=== PATIENT | male | born 1965 | race Caucasian/White ===

== ENCOUNTER 2020-04-03 07:20 | Day surgery (SDC) | payer BC ==
[~2020-04-03] VITALS: Ht 175.3 cm; Wt 143.7 kg
[2020-04-03] VITALS (16 sets, daily range): BP systolic 80–114; BP diastolic 41–71
[2020-04-03] MEDS ORDERED: SPIR50TA5 PO (07:57)
[2020-04-03] MEDS ORDERED: ZINC220C11 PO (07:57)
[2020-04-03] MEDS ORDERED: LOSA1TAB41 PO (07:57)
[2020-04-03] MEDS ORDERED: HYDR-3972 PO (07:57)
[2020-04-03] MEDS ORDERED: VITA-268 PO (07:57)
[2020-04-03] MEDS ORDERED: FURO40TA4 PO (07:57)
[2020-04-03] MEDS ORDERED: THIA500T (07:57)
[2020-04-03] MEDS: albumin 25% 100mL bottle x 1 IV PRN ×4 (09:02→11:46)
== END 2020-04-03 12:45 | disposition home or self-care (01) ==
LOC: SSTAY O 07:20
PROVIDERS: ATTEND Radiology Vascular & Interventional Radiology
DX: K70.31 Alcoholic cirrhosis of liver with ascites (principal); D64.9 Anemia, unspecified; I10 Essential (primary) hypertension; K76.6 Portal hypertension; Z98.890 Other specified postprocedural states; Z79.899 Other long term (current) drug therapy
CPT/HCPCS: 49083; P9047

== ENCOUNTER 2020-05-05 06:27 | Day surgery (SDC) | payer BC ==
[~2020-05-05] VITALS: Ht 175.3 cm; Wt 124.8 kg
[2020-05-05] VITALS (15 sets, daily range): BP systolic 72–99; BP diastolic 34–60
[~2020-05-05 06:27] MED LIST: FURO40TA4 PO; HYDR-3972 PO; LOSA1TAB41 PO; SPIR50TA5 PO; THIA500T; VITA-268 PO; ZINC220C11 PO
[2020-05-05] MEDS ORDERED: ondansetron/PF 4mg/2ml inj IV ONE (07:10)
[2020-05-05] MEDS ORDERED: OMEP40CA13 PO (07:21)
[2020-05-05] MEDS: albumin 25% 100mL bottle x 1 IV PRN ×4 (08:31→10:34)
[2020-05-05] MEDS ORDERED: HYDROcodone/acetaminophen 10/325mg tab PO PRN (09:30)
[2020-05-05 10:06] LABS: TOTAL PROTEIN,BODY FLUID 2.7 G/DL
[2020-05-05] MEDS ORDERED: normal saline 1000ml 1,000 ML IV ONE (10:35)
[2020-05-05 11:03] LABS: BF MESOTHELIAL CELLS FEW; BF RBC COUNT 13 /CU MM; BF WBC COUNT 129 /CU MM (0-1000); BFAPPEAR HAZY; BFCOLOR YELLOW; BFVOLUME 60 ML; LYMPHOCYTES,BODY FLUID 29 %; MONOCYTES,BODY FLUID 69 %; NEUTROPHILS,BODY FLUID 2 %
== END 2020-05-05 11:30 | disposition home or self-care (01) ==
LOC: SSTAY O 06:27
PROVIDERS: ATTEND Radiology Vascular & Interventional Radiology
DX: K70.31 Alcoholic cirrhosis of liver with ascites (principal); D64.9 Anemia, unspecified; I10 Essential (primary) hypertension; K76.6 Portal hypertension; Z98.890 Other specified postprocedural states; Z79.899 Other long term (current) drug therapy
CPT/HCPCS: 49083; 82042; 84157; 89051; J2405; J7030; P9047

== ENCOUNTER 2020-06-16 06:20 | Day surgery (SDC) | payer BC ==
[2020-06-16] VITALS (17 sets, daily range): BP systolic 85–120; BP diastolic 45–75
[~2020-06-16] VITALS: Ht 175.3 cm; Wt 116.8 kg
[~2020-06-16 06:20] MED LIST changes: -LOSA1TAB41 PO; +OMEP40CA13 PO
[2020-06-16] MEDS ORDERED: HYDR-3686 (06:55)
[2020-06-16] MEDS ORDERED: GABA300C PO (06:55)
[2020-06-16] MEDS ORDERED: CLOT15CR73 (06:55)
[2020-06-16] MEDS ORDERED: BUME1TAB8 PO (06:55)
[2020-06-16] MEDS: albumin 25% 100mL bottle x 1 IV PRN ×4 (08:33→10:57)
[2020-06-16] MEDS ORDERED: ketorolac trometh. 30mg/ml inj. IV ONE (08:45)
[2020-06-16] MEDS ORDERED: CHOL4PAC4 (09:31)
[2020-06-16] MEDS ORDERED: POLY119P28 (09:31)
== END 2020-06-16 12:00 | disposition home or self-care (01) ==
LOC: SSTAY O 06:20
PROVIDERS: ATTEND Radiology Diagnostic Radiology
DX: K70.31 Alcoholic cirrhosis of liver with ascites (principal); D64.9 Anemia, unspecified; I10 Essential (primary) hypertension; K76.6 Portal hypertension; F10.21 Alcohol dependence, in remission; Z98.890 Other specified postprocedural states; Z79.899 Other long term (current) drug therapy
CPT/HCPCS: 49083; J1885; P9047

== ENCOUNTER 2020-07-01 07:04 | Day surgery (SDC) | payer BC ==
[~2020-07-01] VITALS: Ht 175.3 cm; Wt 120.8 kg
[2020-07-01] VITALS (14 sets, daily range): BP systolic 84–121; BP diastolic 42–78
[~2020-07-01 07:04] MED LIST changes: +BUME1TAB8 PO; +CHOL4PAC4; +CLOT15CR73; -FURO40TA4 PO; +GABA300C PO; +HYDR-3686; -OMEP40CA13 PO; +POLY119P28
[2020-07-01] MEDS ORDERED: normal saline 1000ml 1,000 ML IV PRN (07:25)
[2020-07-01] MEDS ORDERED: GABA300C PO (07:40)
[2020-07-01] MEDS ORDERED: SPIR100T5 PO (07:40)
[2020-07-01] MEDS: albumin 25% 100mL bottle x 1 IV PRN ×4 (09:07→11:21)
[2020-07-01] MEDS ORDERED: ketorolac trometh. 30mg/ml inj. IV ONE (09:10)
== END 2020-07-01 12:40 | disposition home or self-care (01) ==
LOC: SSTAY O 07:04
PROVIDERS: ATTEND Radiology Vascular & Interventional Radiology
DX: K70.31 Alcoholic cirrhosis of liver with ascites (principal); D64.9 Anemia, unspecified; I10 Essential (primary) hypertension; K76.6 Portal hypertension; Z98.890 Other specified postprocedural states; Z79.899 Other long term (current) drug therapy
CPT/HCPCS: 49083; J1885; P9047

== ENCOUNTER 2020-07-08 06:11 | Day surgery (SDC) | payer BC ==
[~2020-07-08] VITALS: Ht 175.3 cm; Wt 119.0 kg
[2020-07-08] VITALS (12 sets, daily range): BP systolic 90–115; BP diastolic 48–69
[~2020-07-08 06:11] MED LIST changes: +SPIR100T5 PO; -SPIR50TA5 PO
[2020-07-08] MEDS: albumin 25% 100mL bottle x 1 IV PRN ×4 (08:24→09:58)
[2020-07-08 09:39] LABS: LYMPHOCYTES,BODY FLUID 51 %; MONOCYTES,BODY FLUID 47 %; NEUTROPHILS,BODY FLUID 2 %
[2020-07-08 09:42] LABS: BF RBC COUNT 76 /CU MM; BF WBC COUNT 124 /CU MM (0-1000); BFAPPEAR CLOUDY; BFCOLOR YELLOW; BFVOLUME 60 ML
[2020-07-08 09:43] LABS: BF MESOTHELIAL CELLS FEW
[2020-07-08 10:03] LABS: ALBUMIN,BODY FLUID < 0.6 G/DL
[2020-07-08 10:04] LABS: TOTAL PROTEIN,BODY FLUID < 2.0 G/DL
== END 2020-07-08 10:40 | disposition home or self-care (01) ==
LOC: SSTAY O 06:11
PROVIDERS: ATTEND Radiology Diagnostic Radiology
DX: K70.31 Alcoholic cirrhosis of liver with ascites (principal); D64.9 Anemia, unspecified; I10 Essential (primary) hypertension; K76.6 Portal hypertension; Z98.890 Other specified postprocedural states; Z79.899 Other long term (current) drug therapy
CPT/HCPCS: 49083; 82042; 84157; 89051; 93005; P9047

== ENCOUNTER 2020-07-17 06:14 | Day surgery (SDC) | payer BC ==
[~2020-07-17] VITALS: Ht 175.3 cm; Wt 118.9 kg
[2020-07-17] VITALS (15 sets, daily range): BP systolic 86–131; BP diastolic 45–75
[2020-07-17] MEDS ORDERED: vitamin c PO (06:57)
[2020-07-17] MEDS: albumin 25% 100mL bottle x 1 IV PRN ×4 (08:19→10:53)
== END 2020-07-17 12:30 | disposition home or self-care (01) ==
LOC: SSTAY O 06:14
PROVIDERS: ATTEND Radiology Diagnostic Radiology
DX: K70.31 Alcoholic cirrhosis of liver with ascites (principal); D64.9 Anemia, unspecified; I10 Essential (primary) hypertension; K76.6 Portal hypertension; Z98.890 Other specified postprocedural states; Z79.899 Other long term (current) drug therapy
CPT/HCPCS: 49083; P9047

== ENCOUNTER 2020-09-04 08:24 | Emergency (ER) | payer BC ==
[~2020-09-04] VITALS: Ht 175.3 cm; Wt 114.9 kg
[~2020-09-04 08:24] MED LIST changes: -BUME1TAB8 PO; -CHOL4PAC4; -SPIR100T5 PO; +vitamin c PO
[2020-09-04 09:55] VITALS: BP 117/62
[2020-09-05] MEDS ORDERED: BUME1TAB34 PO (08:47)
[2020-09-05] MEDS ORDERED: BUME0.5T6 PO (08:48)
[2020-09-05] MEDS ORDERED: cipro PO (08:50)
[2020-09-05] MEDS ORDERED: ergocalciferol PO (08:55)
[2020-09-05] MEDS ORDERED: MIRT-116 PO (08:56)
[2020-09-05] MEDS ORDERED: RIFA550T PO (08:57)
[2020-09-05] MEDS ORDERED: SPIR100T5 PO (08:58)
[2020-09-05] MEDS ORDERED: FLO0.4C PO (08:59)
[2020-09-05] MEDS ORDERED: LACT10SO57 PO (09:06)
== END 2020-09-04 09:53 | disposition home or self-care (01) ==
LOC: ER 08:25
DX: M25.571 Pain in right ankle and joints of right foot (principal); M25.572 Pain in left ankle and joints of left foot; Z79.2 Long term (current) use of antibiotics; Z79.899 Other long term (current) drug therapy
CPT/HCPCS: 99281

== ENCOUNTER 2020-09-05 08:19 | Day surgery (SDC) | payer BC ==
[2020-09-05] VITALS (13 sets, daily range): BP systolic 101–111; BP diastolic 53–67
[~2020-09-05] VITALS: Ht 175.3 cm; Wt 116.4 kg
[2020-09-05] MEDS ORDERED: BUME1TAB34 PO (08:47)
[2020-09-05] MEDS ORDERED: BUME0.5T6 PO (08:48)
[2020-09-05] MEDS ORDERED: cipro PO (08:50)
[2020-09-05] MEDS ORDERED: ergocalciferol PO (08:55)
[2020-09-05] MEDS ORDERED: MIRT-116 PO (08:56)
[2020-09-05] MEDS ORDERED: RIFA550T PO (08:57)
[2020-09-05] MEDS ORDERED: SPIR100T5 PO (08:58)
[2020-09-05] MEDS ORDERED: FLO0.4C PO (08:59)
[2020-09-05] MEDS ORDERED: LACT10SO57 PO (09:06)
[2020-09-05] MEDS: albumin 25% 100mL bottle x 1 IV PRN ×2 (09:28→10:12)
== END 2020-09-05 12:40 | disposition home or self-care (01) ==
LOC: SSTAY O 08:19
PROVIDERS: ATTEND Radiology Vascular & Interventional Radiology
DX: K70.31 Alcoholic cirrhosis of liver with ascites (principal); D64.9 Anemia, unspecified; I10 Essential (primary) hypertension; K76.6 Portal hypertension; Z98.890 Other specified postprocedural states; Z79.899 Other long term (current) drug therapy
CPT/HCPCS: 49083; P9047

== ENCOUNTER 2020-10-30 06:16 | Day surgery (SDC) | payer BC ==
[~2020-10-30] VITALS: Ht 175.3 cm; Wt 135.2 kg
[2020-10-30] VITALS (14 sets, daily range): BP systolic 99–110; BP diastolic 44–68
[~2020-10-30 06:16] MED LIST changes: +BUME0.5T6 PO; +BUME1TAB34 PO; -CLOT15CR73; +FLO0.4C PO; -GABA300C PO; -HYDR-3686; -HYDR-3972 PO; +LACT10SO57 PO; +MIRT-116 PO; -POLY119P28; +RIFA550T PO; +SPIR100T5 PO; -THIA500T; +cipro PO; +ergocalciferol PO
[2020-10-30] MEDS ORDERED: normal saline 1000ml 1,000 ML IV PRN (07:00)
[2020-10-30] MEDS ORDERED: GABA600T13 PO (07:27)
[2020-10-30] MEDS: albumin 25% 100mL bottle x 1 IV PRN ×3 (08:46→09:37)
[2020-10-30 10:45] LABS: LYMPHOCYTES,BODY FLUID 49 %; MONOCYTES,BODY FLUID 49 %; NEUTROPHILS,BODY FLUID 2 %
[2020-10-30 10:47] LABS: BF MESOTHELIAL CELLS FEW; BF RBC COUNT 36 /CU MM; BF WBC COUNT 115 /CU MM (0-1000); BFAPPEAR HAZY; BFCOLOR YELLOW; BFVOLUME 53 ML
[2020-10-30 10:52] LABS: OTHER CELLS,BODY FLUID MACROPHAGES
== END 2020-10-30 11:45 | disposition home or self-care (01) ==
LOC: SSTAY O 06:16
PROVIDERS: ATTEND Preventive Medicine Aerospace Medicine
DX: K70.31 Alcoholic cirrhosis of liver with ascites (principal); I10 Essential (primary) hypertension; D64.9 Anemia, unspecified; K76.6 Portal hypertension; Z98.890 Other specified postprocedural states; Z79.899 Other long term (current) drug therapy
CPT/HCPCS: 49083; 87070; 89051; P9047

== ENCOUNTER 2020-12-05 06:15 | Day surgery (SDC) | payer BC ==
[~2020-12-05] VITALS: Ht 175.3 cm; Wt 129.0 kg
[2020-12-05] VITALS (18 sets, daily range): BP systolic 74–125; BP diastolic 29–72
[~2020-12-05 06:15] MED LIST changes: -BUME0.5T6 PO; -FLO0.4C PO; +GABA600T13 PO; -cipro PO
[2020-12-05] MEDS: albumin 25% 100mL bottle x 1 IV PRN ×3 (08:54→09:03)
[2020-12-05 10:44] LABS: LYMPHOCYTES,BODY FLUID 38 %; MONOCYTES,BODY FLUID 61 %; NEUTROPHILS,BODY FLUID 1 %
[2020-12-05 10:45] LABS: BF RBC COUNT 18 /CU MM; BF WBC COUNT 110 /CU MM (0-1000); BFAPPEAR CLEAR; BFCOLOR YELLOW; BFVOLUME 60 ML
== END 2020-12-05 12:02 | disposition home or self-care (01) ==
LOC: SSTAY O 06:15
PROVIDERS: ATTEND Preventive Medicine Aerospace Medicine
DX: K70.31 Alcoholic cirrhosis of liver with ascites (principal); D64.9 Anemia, unspecified; I10 Essential (primary) hypertension; K76.6 Portal hypertension; Z98.890 Other specified postprocedural states; Z79.899 Other long term (current) drug therapy
CPT/HCPCS: 49083; 87070; 89051; P9047

== ENCOUNTER 2021-03-24 06:19 | Day surgery (SDC) | payer BC ==
[2021-03-24] VITALS (10 sets, daily range): BP systolic 97–137; BP diastolic 52–67
[~2021-03-24] VITALS: Ht 175.3 cm; Wt 128.8 kg
[~2021-03-24 06:19] MED LIST changes: -MIRT-116 PO
[2021-03-24] MEDS ORDERED: LIDOcaine 1% 30ml preserv. free vial SQ STA (06:31)
[2021-03-24] MEDS ORDERED: PANT40TA54 PO (06:41)
[2021-03-24] MEDS ORDERED: TAMSULOSIN (06:41)
[2021-03-24] MEDS ORDERED: BIOTIN (06:44)
[2021-03-24] MEDS ORDERED: FLO0.4C PO (06:44)
[2021-03-24] MEDS: albumin 25% 100mL bottle x 1 IV PRN ×2 (08:55→09:46)
[2021-03-24 09:54] LABS: ALBUMIN,BODY FLUID 0.9 G/DL
[2021-03-24 10:09] LABS: EOSINOPHILS,BODY FLUID 1 %; LYMPHOCYTES,BODY FLUID 52 %; MONOCYTES,BODY FLUID 35 %; NEUTROPHILS,BODY FLUID 12 %
[2021-03-24 10:10] LABS: BFAPPEAR CLOUDY
[2021-03-24 10:11] LABS: BF RBC COUNT 158 /CU MM; BF WBC COUNT 158 /CU MM (0-1000); BFCOLOR YELLOW; BFVOLUME 50 ML
[2021-03-24 10:12] LABS: BF MESOTHELIAL CELLS FEW
== END 2021-03-24 11:00 | disposition home or self-care (01) ==
LOC: SSTAY O 06:19
PROVIDERS: ATTEND Radiology Vascular & Interventional Radiology
DX: K70.31 Alcoholic cirrhosis of liver with ascites (principal); D64.9 Anemia, unspecified; I10 Essential (primary) hypertension; K76.6 Portal hypertension; K72.90 Hepatic failure, unspecified without coma; Z98.890 Other specified postprocedural states; Z79.899 Other long term (current) drug therapy
CPT/HCPCS: 36415; 49083; 82042; 83605; 87040; 89051; P9047

== ENCOUNTER 2021-06-22 06:17 | Day surgery (SDC) | payer BC ==
[~2021-06-22] VITALS: Ht 175.3 cm; Wt 126.2 kg
[2021-06-22] VITALS (12 sets, daily range): BP systolic 96–123; BP diastolic 42–72
[~2021-06-22 06:17] MED LIST changes: +BIOTIN; +FLO0.4C PO; +PANT40TA54 PO
[2021-06-22] MEDS ORDERED: LIDOcaine 1%/PF 5ML 10 MG/ML VIAL SQ ONE (07:00)
[2021-06-22] MEDS ORDERED: LACT10SO3 PO (07:08)
[2021-06-22] MEDS ORDERED: BUME1TAB34 PO (07:08)
[2021-06-22] MEDS ORDERED: CHOL100025 PO (07:08)
[2021-06-22] MEDS ORDERED: ESCI20TA PO (07:08)
[2021-06-22] MEDS: albumin 25% 100mL bottle x 1 IV PRN ×3 (08:59→10:06)
--- NOTE | 2021-06-22 10:20 | NUR ---
Pt ate 100% of breakfast tray. 150ml oral fluid intake.
== END 2021-06-22 11:23 | disposition home or self-care (01) ==
LOC: SSTAY O 06:17
PROVIDERS: ATTEND Preventive Medicine Aerospace Medicine
DX: K70.31 Alcoholic cirrhosis of liver with ascites (principal); D64.9 Anemia, unspecified; I10 Essential (primary) hypertension; K76.6 Portal hypertension; Z98.890 Other specified postprocedural states; Z79.899 Other long term (current) drug therapy
CPT/HCPCS: 49083; J3490; P9047

== ENCOUNTER 2021-10-01 12:55 | Emergency (ER) | payer BC ==
[~2021-10-01] VITALS: Ht 175.3 cm; Wt 111.4 kg
[~2021-10-01 12:55] MED LIST changes: +BIOT1TAB PO; -BIOTIN; -BUME1TAB34 PO; +BUME1TAB8 PO; +ERGO500093 PO; +ESCI20TA PO; +LACT10SO3 PO; -LACT10SO57 PO; -PANT40TA54 PO; -ZINC220C11 PO; +ZINC220C12 PO; -ergocalciferol PO
[2021-10-01 13:10] VITALS: BP 108/48
[2021-10-01 14:29] LABS: BASOPHILS % (AUTO) 0.4 % (0-1); EOSINOPHILS # (AUTO) 0.4 X10'3 (0-0.9); EOSINOPHILS % (AUTO) 8.1 % (0-6); HEMATOCRIT 32.4 % (42.0-52.0); HEMOGLOBIN 11.3 g/dl (14.0-17.9); LYMPHOCYTES % (AUTO) 19.1 % (21-51); MEAN CORPUSCULAR HEMOGLOBIN 33.2 PG (27.0-31.0); MEAN CORPUSCULAR HGB CONC 34.7 g/dL (33.0-36.5); MEAN CORPUSCULAR VOLUME 95.7 FL (78-98); MEAN PLATELET VOLUME 6.9 FL (7.4-10.4); MONOCYTES # (AUTO) 0.7 X10'3 (0-0.9); MONOCYTES % (AUTO) 13.4 % (2-12); PLATELET COUNT 127 X10'3 (140-440); RED BLOOD COUNT 3.39 X10'6 (4.70-6.10); RED CELL DISTRIBUTION WIDTH 13.8 % (11.5-14.5)
[2021-10-01 14:38] LABS: ALANINE AMINOTRANSFERASE 22 U/L (12-78); ALBUMIN 2.6 G/DL (3.4-5.0); ALBUMIN/GLOBULIN RATIO 0.7 (1.1-1.5); ALKALINE PHOSPHATASE 104 IU/L (46-116); ANION GAP 6 (8-16); ASPARTATE AMINO TRANSFERASE 46 U/L (10-37); BILIRUBIN,TOTAL 1.2 MG/DL (0.1-1.0); BLOOD UREA NITROGEN 20 MG/DL (7-18); BUN/CREATININE RATIO 14.9 (5.4-32.0); CALCIUM 8.3 MG/DL (8.5-10.1); CHLORIDE 103 MMOL/L (99-107); CREATININE 1.34 MG/DL (0.60-1.10); GLUCOSE 92 MG/DL (70-104); LIPASE 336 U/L (73-393); POTASSIUM 4.3 MMOL/L (3.5-5.1); SODIUM 136 MMOL/L (135-145); TOTAL CARBON DIOXIDE 26.7 MMOL/L (24-32); TOTAL PROTEIN 6.4 G/DL (6.4-8.2); eGFR 55 ML/MIN
[2021-10-01] MEDS ORDERED: LIDOcaine 5% patch TP STA (16:52)
[2021-10-01] MEDS ORDERED: LIDO700A47 TD (17:01)
[2021-10-01 17:03] LABS: CLARITY,URINE SLIGHTLY CLOUDY (Clear); COLOR,URINE YELLOW (Yellow); GLUCOSE, URINE NEGATIVE (Neg); KETONES,URINE NEGATIVE (Neg); LEUKOCYTE ESTERASE ,URINE SMALL (Neg); NITRITES, URINE NEGATIVE (Neg); OCCULT BLOOD,URINE NEGATIVE (Neg); PROTEIN,URINE NEGATIVE (Neg); UROBILINOGEN,URINE 0.2 E.U/dL (0.2-1.0)
[2021-10-01 17:08] LABS: UA COLLECTION TYPE NON-SPECIFIED
[2021-10-01 17:09] LABS: RBC,URINE 0-2 /HPF (0-2); WBC,URINE 0-4 /HPF (0-4)
[2021-10-01 17:10] LABS: BACTERIA,URINE NONE SEEN /HPF (Neg); SQUAMOUS EPITHELIAL CELL,UR FEW /LPF (FEW)
[2021-10-01] MEDS ORDERED: CIPR-202 PO (17:20)
[2021-10-01] MEDS ORDERED: ciprofloxacin 250mg tablet PO ONE (17:40)
== END 2021-10-01 18:12 | disposition home or self-care (01) ==
LOC: ER 12:55
DX: N39.0 Urinary tract infection, site not specified (principal); M54.9 Dorsalgia, unspecified
CPT/HCPCS: 36415; 74176; 80053; 81001; 83690; 85025; 87088; 99284